=== PATIENT | female | born 1975 | race Caucasian/White ===

== ENCOUNTER 2017-05-14 07:43 | Emergency (ER) | payer OTHER ==
[~2017-05-14] VITALS: Ht 162.6 cm; Wt 122.5 kg
[~2017-05-14 07:43] MED LIST: GILDESS PO; LEXAPRO10 M1 PO; METFORMIN1000 MG PO; OMEPRAZOLE40 MG PO; TESSALON PERLE100 MG PO; ZITHROMAX Z-PA250 M1 PO
--- NOTE | 2017-05-14 08:47 | ED GI/GU/ABDOMINAL COMPLAINT ---
History of Present Illness General Chief Complaint: Abdominal Pain/Flank Pain Stated Complaint: ABDOMINAL PAIN RADIATING TO BACK Source: patient Exam Limitations: no limitations Vital Signs & Intake/Output Vital Signs & Intake/Output Vital Signs Date Time Temp Pulse Resp B/P B/P Pulse O2 O2 Flow FiO2 Mean Ox Delivery Rate 05/14 0752 97.2 98 16 150/100 98 Room Air Allergies Coded Allergies: Penicillins (Mild, RASH 05/14/17) Sulfa (Sulfonamide Antibiotics) (Mild, RASH 05/14/17) avocado (UNKNOWN 05/14/17) Reconcile Medications Escitalopram Oxalate (Lexapro) 10 MG TABLET 1 TAB PO DAILY ANXIETY (Reported) Hyoscyamine (Levsin) 0.125 MG TABLET 1 TAB PO Q4 PRN abdominal spasms Medroxyprogesterone Acetate (Depo-Provera) 150 MG/ML SYRINGE 1 ML IM Q3M BC ( Reported) Metformin HCl 1,000 MG TABLET 1 TAB PO DAILY DIABETES (Reported) Ondansetron (Zofran Odt) 4 MG TAB.RAPDIS 1 TAB SL TID PRN nausea Pantoprazole Sodium 40 MG TABLET.DR 1 TAB PO DAILY GI (Reported) Triage Note: PT TO ED S/P UPPER ABD PAIN X12 HOURS. C/O OF NAUSEA AND DIARRHEA. DENIES CP/SOB. PAIN IS 7/10. WAS SEEN AT WALK IN ON WEDNESDAY AND PRESCRIBED PREDNISONE FOR RASH TO BILATERAL LOWER EXT. STOPPED TAKING PREDNISONE WHEN ABD PAIN STARTED. DENIES BLOOD IN STOOL. DENIES CHANCE OF , "I'M ON THE DEPO SHOT." PT ALSO REPORTS SHE IS TYPE 2 DIABETIC "SUGARS HAVE BEEN UNDER CONTROL" FINGER STICK BS 271 IN TRIAGE. Triage Nurses Notes Reviewed? yes ? N Is pt currently ? No Onset: Gradual Duration: day(s): (5) Timing: no prior history Quality/Severity: cramping, sharpness Severity Numbers: 6 Location: epigastric Radiation: back Activities at Onset: none Prior Abdominal Problems: none Past Sexual History: Unobtainable at this time No Modifying Factors: none HPI: Patient is a 41-year-old female presenting to the emergency department complaining of epigastric pain, nausea with associated diarrhea since Wednesday. Patient reports that she had a pedicure done on Wednesday and noticed a rash on her legs so then she went to the walk-in clinic which diagnosed her with a reaction and put her on prednisone. She took prednisone for 2 days and then developed the epigastric pain and diarrhea. No blood in the stool. Patient reports that the rash has been improving but abdominal pain is getting worse. No fevers or chills. Positive nausea but no vomiting. No sick contacts or recent travel. No recent antibiotic use. Her taking Tums [id number] without relief. Hasn't been able to eat for the past day and half secondary to pain. Remote history of cholecystectomy. Denies chest pain palpitations shortness of breath. Past History Travel History Traveled to [place] past 21 day No Medical History Any Pertinent Medical History? see below for history Neurological: NONE EENT: NONE Cardiovascular: NONE Respiratory: bronchitis Gastrointestinal: NONE Hepatic: NONE Renal: NONE Musculoskeletal: NONE Psychiatric: NONE Endocrine: diabetes, GESTATIONAL DIABETES, MEDICAL RECORDS SUPERVISOR/Reproductive: Influenza Vaccine: 11/22/14 Surgical History Surgical History: non-contributory Psychosocial History What is your primary language Taiwanese Tobacco Use: Never used Family History Hx Contributory? No Review of Systems Review of Systems Constitutional: Reports: no symptoms. Comments Review of systems: See HPI, All other systems negative. Constitutional, no chills fever or weight loss HEENT: No visual changes no sore throat no congestion Cardiovascular: No chest pain ,palpitation , orthopnea or ankle swelling Skin, no jaundice Respiratory: No dyspnea cough sputum or hemoptysis GI: No vomiting : No dysuria No hematuria Muscle skeletal:no neck pain, Neurologic: No numbness no confusion, no headaches Psych: No stress anxiety or depression,. Heme/endocrine: No bruising no bleeding no polyuria or polydipsia Immunology: No splenectomy or history of AIDS Physical Exam Physical Exam General Appearance: no apparent distress, alert, awake, comfortable, obese Gastrointestinal: soft, tenderness, HYPOACTIVE BOWEL SOUNDS THROUGHOUT Comments: Well-developed well-nourished person in no acute distress HEENT: Atraumatic, normocephalic Neck: Normal inspection Back: Nontender, no CVA tenderness. Cardiovascular: Regular rate and rhythms no murmurs rubs or gallops, normal JVP Respiratory: Chest nontender. No respiratory distress.breath sounds clear to auscultation bilaterally Abdomen: Soft, obese, tender to palpation in epigastric region without rebound or guarding, nondistended, no appreciable organomegaly. Normal bowel sounds. No ascites. Extremity: No edema, no calf tenderness to palpation, normal and equal pulses pedally. Neuro: Alert oriented x3, motor sensory normal Skin: Petechial appearing rash noted on the lower extremities bilaterally, non- blanchable. Nontender. No excoriations noticed. Psych: Mood and affect is normal, memory and judgment is normal. Core Measures ACS in differential dx? No Sepsis Present: No Sepsis Focused Exam Completed? No Progress Differential Diagnosis: CHOLEDOCHOLITHIASIS, CHOLANGITIS, uti, PYELONEPHRITIS, GASTRITIS, VIRAL SYNDROME, PETECHIAL RASH SECONDARY TO VIRAL SYNDROME,, THROMBOCYTOPENIA, PANCREATITIS Plan of Care: Orders Procedure Date/time Status Add-on Test (ER Only) 05/14 1239 Active Add-on Test (ER Only) 05/14 1024 Active Add-on Test (ER Only) 05/14 0916 Active FingerStick- Glucose 05/14 09 Active SERUM OSMOLALITY 05/14 0900 Complete LIPID PANEL 05/14 09 Complete ETHANOL 05/14 0900 Complete ACETONE 05/14 09 Complete URINE 05/14 08 Complete URINALYSIS 05/14 830 Complete PARTIAL THROMBOPLASTIN TIME 05/14 08 Complete PROTHROMBIN TIME 05/14 08 Complete LIPASE 05/14 0831 Complete COMPREHENSIVE METABOLIC PANEL 05/14 0831 Complete CBC WITHOUT DIFFERENTIAL 05/14 830 Complete AMYLASE 05/14 0831 Complete Laboratory Tests 05/14/17 0900: Anion Gap 15, Estimated GFR > 60, BUN/Creatinine Ratio 26.7 H, Glucose 292 H, Serum Osmolality 296 H, Calcium 9.5, Total Bilirubin 0.9, AST 11 L, ALT 25, Alkaline Phosphatase 107, Total Protein 7.2, Albumin 3.9, Globulin 3.3, Albumin/ Globulin Ratio 1.2, Triglycerides 125, Cholesterol 155, LDL Cholesterol, Calc 58 L, HDL Cholesterol 72 H, Cholesterol/HDL Ratio 2, Amylase < 30 L, Lipase 88, PT 11.5, INR 1.05, APTT 26, CBC w Diff NO MAN DIFF REQ, RBC 5.05, MCV 84.1, MCH 28.2, MCHC 33.5, RDW 14.0, MPV 9.3, Gran % 75.7 H, Lymphocytes % 13.9 L, Monocytes % 9.5 H, Eosinophils % 0.6, Basophils % 0.3, Absolute Granulocytes 11.9 H, Absolute Lymphocytes 2.2, Absolute Monocytes 1.5 H, Absolute Eosinophils 0.1, Absolute Basophils 0, Serum Alcohol < 10.0, Acetone Level POSITIVE AT 1:2 DIL 05/14/17 0855: Urinalysis LIGHT H, Urine Color YEL, Urine Clarity CLEAR, Urine pH 6.0, Ur Specific [place] 1.025, Urine Protein TRACE H, Urine Ketones >=80, Urine Nitrite NEG, Urine Bilirubin NEG@ICTO, Urine Urobilinogen 0.2, Ur Leukocyte Esterase NEG, Ur Microscopic SEDIMENT EXAMINED, Urine RBC 1-3, Urine WBC 1-3 H, Ur Epithelial Cells FEW, Urine Bacteria FEW H, Urine Mucus FEW, Urine Hemoglobin TRACE-INTACT, Urine Glucose 500 H, Urine Test NEGATIVE 05/14/2017 12:39:42 PM patient feeling much improved after IV hydration, Toradol and Pepcid. Patient has minimal to no abdominal pain on reevaluation. Informed of all lab work and imaging studies. Imaging reveals mesenteric adenitis, likely viral in nature. Patient be treated symptomatically. Unclear as to where patient obtained petechial rash, tick born panel sent off for evaluation although no history of tick bite. Patient will be treated symptomatically for GI symptoms. Educated on signs and symptoms to return. Patient is nontoxic, well-appearing. Patient afebrile. White count elevation likely related to pain and viral induced infection. d/w dr gregory and he agrees with plan. Diagnostic Imaging: Viewed by Me: CT Scan. Discussed w/RAD: CT Scan. Radiology Impression: PATIENT: EB MARIE PRESENT AGE: 41 PATIENT ACCOUNT NO: [id number] : 75 LOCATION: [facility] ORDERING PHYSICIAN: Neli ALBERTO SERVICE DATE: 05/14/17 EXAM TYPE: CAT - CT ABD & PELVIS W IV CONTRAST EXAMINATION: CT ABDOMEN AND PELVIS WITH CONTRAST CLINICAL INFORMATION: Abdominal pain, evaluation for acute pancreatitis. COMPARISON: None TECHNIQUE: Multidetector volumetric imaging was performed of the abdomen and pelvis following IV administration of 95 mL of Optiray 320 intravenous contrast. Sagittal and coronal reformatted images were obtained on the technologist's workstation. DLP: 1438.06 mGy-cm FINDINGS: LUNG BASES: The visualized lung bases are unremarkable. LIVER, GALLBLADDER, AND BILIARY TREE: The liver is normal in size. There is mild diffuse decreased hepatic parenchymal density. This would represent changes of hepatic steatosis. There is a 2.0 cm indistinct area of lower attenuation in posterior right lobe of the liver, segment 6. It cannot be further evaluated. The finding is better seen on axial image 25 from series 2. No biliary ductal dilatation is present. The gallbladder is absent, prior cholecystectomy. PANCREAS: The pancreas is normal in size and parenchymal enhancement. No pancreatic ductal dilatation is noted. SPLEEN: Unremarkable. ADRENAL GLANDS: Unremarkable. KIDNEYS AND URETERS: The kidneys are normal in size, shape, and attenuation. No hydronephrosis, hydroureter seen. There are multiple nonobstructing renal stones. For example, a 4 mm stone in the lower pole calyx of the left kidney, coronal image 71; 2 adjacent punctate calcific densities in the mid part of the left kidney, coronal image 73. No perinephric stranding. BLADDER: Unremarkable. GASTROINTESTINAL TRACT: The small bowel loops and colon are not dilated. There is no abnormal wall thickening. The appendix is visualized and without evidence of acute appendicitis. There is a moderate fat stranding involving the SMA with extension to the root of mesentery. The fat stranding surrounding the SMA is close to the uncinate process of the pancreas. Multiple mildly enlarged lymph nodes are also seen. The findings are in favor of mesenteric adenitis. ABDOMINAL WALL: A small fat- containing umbilical hernia is present. LYMPH NODES: Multiple mildly enlarged mesenteric lymph nodes are seen. There is no pelvic adenopathy. There is no retroperitoneal adenopathy. VASCULAR: Unremarkable. PELVIC VISCERA: The uterus and adnexa are unremarkable. OSSEOUS STRUCTURES: Unremarkable. IMPRESSION: Moderate fat stranding at the root of mesentery with associated adenopathy could represent changes of mesenteric adenitis. Multiple bilateral nonobstructing small renal stones. Hepatic steatosis. A 2.0 cm area of indistinct hepatic hypoenhancement in the posterior right lobe. Further evaluation based on this exam is limited. Consider evaluation with either ultrasound or MRI of the liver or comparison with prior abdominal imaging. DICTATED BY: Juancarlos Potter MD DATE /TIME DICTATED:05/14/171104 STULL HEWER:ANIRUDH DATE/TIME TRANSCRIBED: 05/14/171104 CONFIDENTIAL, DO NOT COPY WITHOUT APPROPRIATE AUTHORIZATION. < Electronically signed in Other Vendor System> SIGNED BY: Juancarlos Potter MD 05/14/17 1211 Initial ED EKG: none Departure Departure Time of Disposition: 1236 Disposition: HOME OR SELF CARE Condition: Stable Clinical Impression Primary Impression: Mesenteric adenitis Secondary Impressions: Abdominal pain Qualifiers: Abdominal location: epigastric Qualified Code: R10.13 - Epigastric pain Hypertension Qualifiers: Hypertension type: essential hypertension Qualified Code: I10 - Essential (primary) hypertension Rash and nonspecific skin eruption Referrals: Homar KELLEY,Kendall Llamas (PCP/Family) Additional Instructions: Follow-up with your primary care physician in the next 2-4 days for reevaluation. Increase fluids. Take Levsin help with any abdominal discomfort. Takes Zofran to and help with nausea. Return to the emergency department for any worsening symptoms or concerns. Attached is a copy of your CAT scan results. Make sure he follow up with a primary care physician regarding any incidental findings that there may be. PATIENT: EB MARIE PRESENT AGE: 41 PATIENT ACCOUNT NO: [id number] : 75 LOCATION: [facility] ORDERING PHYSICIAN: Neli ALBERTO SERVICE DATE: 05/14/17 EXAM TYPE: CAT - CT ABD & PELVIS W IV CONTRAST EXAMINATION: CT ABDOMEN AND PELVIS WITH CONTRAST CLINICAL INFORMATION: Abdominal pain, evaluation for acute pancreatitis. COMPARISON: None TECHNIQUE: Multidetector volumetric imaging was performed of the abdomen and pelvis following IV administration of 95 mL of Optiray 320 intravenous contrast. Sagittal and coronal reformatted images were obtained on the technologist's workstation. DLP: 1438.06 mGy-cm FINDINGS: LUNG BASES: The visualized lung bases are unremarkable. LIVER, GALLBLADDER, AND BILIARY TREE: The liver is normal in size. There is mild diffuse decreased hepatic parenchymal density. This would represent changes of hepatic steatosis. There is a 2.0 cm indistinct area of lower attenuation in posterior right lobe of the liver, segment 6. It cannot be further evaluated. The finding is better seen on axial image 25 from series 2. No biliary ductal dilatation is present. The gallbladder is absent, prior cholecystectomy. PANCREAS: The pancreas is normal in size and parenchymal enhancement. No pancreatic ductal dilatation is noted. SPLEEN: Unremarkable. ADRENAL GLANDS: Unremarkable. KIDNEYS AND URETERS: The kidneys are normal in size, shape, and attenuation. No hydronephrosis, hydroureter seen. There are multiple nonobstructing renal stones. For example, a 4 mm stone in the lower pole calyx of the left kidney, coronal image 71; 2 adjacent punctate calcific densities in the mid part of the left kidney, coronal image 73. No perinephric stranding. BLADDER: Unremarkable. GASTROINTESTINAL TRACT: The small bowel loops and colon are not dilated. There is no abnormal wall thickening. The appendix is visualized and without evidence of acute appendicitis. There is a moderate fat stranding involving the SMA with extension to the root of mesentery. The fat stranding surrounding the SMA is close to the uncinate process of the pancreas. Multiple mildly enlarged lymph nodes are also seen. The findings are in favor of mesenteric adenitis. ABDOMINAL WALL: A small fat-containing umbilical hernia is present. LYMPH NODES: Multiple mildly enlarged mesenteric lymph nodes are seen. There is no pelvic adenopathy. There is no retroperitoneal adenopathy. VASCULAR: Unremarkable. PELVIC VISCERA: The uterus and adnexa are unremarkable. OSSEOUS STRUCTURES: Unremarkable. IMPRESSION: Moderate fat stranding at the root of mesentery with associated adenopathy could represent changes of mesenteric adenitis. Multiple bilateral nonobstructing small renal stones. Hepatic steatosis. A 2.0 cm area of indistinct hepatic hypoenhancement in the posterior right lobe. Further evaluation based on this exam is limited. Consider evaluation with either ultrasound or MRI of the liver or comparison with prior abdominal imaging. DICTATED BY: Juancarlos Potter MD DATE/TIME DICTATED:05/14/171104 STULL HEWER:ANIRUDH DATE/TIME TRANSCRIBED:05/14/171104 CONFIDENTIAL, DO NOT COPY WITHOUT APPROPRIATE AUTHORIZATION. <Electronically signed in Other Vendor System> Departure Forms: Customer Survey General Discharge Information Prescriptions: Current Visit Scripts Hyoscyamine (Levsin) 1 TAB PO Q4 PRN abdominal spasms #40 TAB Ondansetron (Zofran Odt) 1 TAB SL TID PRN nausea #10 TAB
[2017-05-14 09:12] LABS: ABSOLUTE BASOPHIL COUNT 0 /CUMM (0.0-0.2); ABSOLUTE EOSINOPHIL COUNT 0.1 /CUMM (0.0-0.7); ABSOLUTE GRANULOCYTE CT 11.9 /CUMM (1.4-6.5); ABSOLUTE LYMPH COUNT 2.2 /CUMM (1.2-3.4); ABSOLUTE MONOCYTE COUNT 1.5 /CUMM (0.10-0.60); BASOPHIL % 0.3 % (0.0-2.0); EOSINOPHIL % 0.6 % (0-5); GRANULOCYTE % 75.7 % (42.2-75.2); HEMATOCRIT 42.4 % (37-47); MEAN CORPUSCULAR HGB 28.2 PG (27.0-31.0); MEAN CORPUSCULAR HGB CONC 33.5 G/DL (33.0-37.0); MEAN CORPUSCULAR VOLUME 84.1 FL (81.0-99.0); MEAN PLATELET VOLUME 9.3 FL (7.4-10.4); PLATELET COUNT 265 /CUMM (130-400); RED BLOOD CELL CT 5.05 /CUMM (4.20-5.40); WHITE BLOOD CELL COUNT 15.8 /CUMM (4.8-10.8)
[2017-05-14 09:25] LABS: PT 11.5 SEC (9.4-12.5); PTT 26 SEC (25-37)
[2017-05-14] MEDS ORDERED: PANTOPRAZOLE SO40 M1 PO (09:40)
[2017-05-14] MEDS ORDERED: METFORMIN HCL1000 M1 PO (09:41)
[2017-05-14] MEDS ORDERED: DEPO-PROVE150 MG/11 IM (09:44)
--- NOTE | 2017-05-14 12:11 | CT SCAN REPORT ---
EXAMINATION: CT ABDOMEN AND PELVIS WITH CONTRAST CLINICAL INFORMATION: Abdominal pain, evaluation for acute pancreatitis. COMPARISON: None TECHNIQUE: Multidetector volumetric imaging was performed of the abdomen and pelvis following IV administration of 95 mL of Optiray 320 intravenous contrast. Sagittal and coronal reformatted images were obtained on the technologist's workstation. DLP: 1438.06 mGy-cm FINDINGS: LUNG BASES: The visualized lung bases are unremarkable. LIVER, GALLBLADDER, AND BILIARY TREE: The liver is normal in size. There is mild diffuse decreased hepatic parenchymal density. This would represent changes of hepatic steatosis. There is a 2.0 cm indistinct area of lower attenuation in posterior right lobe of the liver, segment 6. It cannot be further evaluated. The finding is better seen on axial image 25 from series 2. No biliary ductal dilatation is present. The gallbladder is absent, prior cholecystectomy. PANCREAS: The pancreas is normal in size and parenchymal enhancement. No pancreatic ductal dilatation is noted. SPLEEN: Unremarkable. ADRENAL GLANDS: Unremarkable. KIDNEYS AND URETERS: The kidneys are normal in size, shape, and attenuation. No hydronephrosis, hydroureter seen. There are multiple nonobstructing renal stones. For example, a 4 mm stone in the lower pole calyx of the left kidney, coronal image 71; 2 adjacent punctate calcific densities in the mid part of the left kidney, coronal image 73. No perinephric stranding. BLADDER: Unremarkable. GASTROINTESTINAL TRACT: The small bowel loops and colon are not dilated. There is no abnormal wall thickening. The appendix is visualized and without evidence of acute appendicitis. There is a moderate fat stranding involving the SMA with extension to the root of mesentery. The fat stranding surrounding the SMA is close to the uncinate process of the pancreas. Multiple mildly enlarged lymph nodes are also seen. The findings are in favor of mesenteric adenitis. ABDOMINAL WALL: A small fat-containing umbilical hernia is present. LYMPH NODES: Multiple mildly enlarged mesenteric lymph nodes are seen. There is no pelvic adenopathy. There is no retroperitoneal adenopathy. VASCULAR: Unremarkable. PELVIC VISCERA: The uterus and adnexa are unremarkable. OSSEOUS STRUCTURES: Unremarkable. IMPRESSION: Moderate fat stranding at the root of mesentery with associated adenopathy could represent changes of mesenteric adenitis. Multiple bilateral nonobstructing small renal stones. Hepatic steatosis. A 2.0 cm area of indistinct hepatic hypoenhancement in the posterior right lobe. Further evaluation based on this exam is limited. Consider evaluation with either ultrasound or MRI of the liver or comparison with prior abdominal imaging.
[2017-05-14] MEDS ORDERED: LEVSIN0.125 M1 PO (12:38)
[2017-05-14] MEDS ORDERED: ZOFRAN ODT4 M1 SL (12:38)
[2017-05-14 12:43] VITALS: BP 136/88
[2017-05-20] MEDS ORDERED: IBUPROFEN800 M1 PO (00:18)
[2017-05-20] MEDS ORDERED: ZOFRAN ODT4 M1 SL (00:19)
== END 2017-05-14 12:43 ==
LOC: ERH 07:43
PROVIDERS: Physician Assistant
DX: I88.0 Nonspecific mesenteric lymphadenitis (principal); I10 Essential (primary) hypertension; R21 Rash and other nonspecific skin eruption
CPT/HCPCS: 86317; 87798; 74177; 81001; 81025; 96361; 96374; 96375; G0480; J1885; J2405